=== PATIENT | female | born 2000 | race Caucasian/White ===

== ENCOUNTER 2023-03-04 05:32 | Emergency (ER) | payer BC, OTHER, SELFPAY ==
[2023-03-04 05:35] VITALS: BP 118/72; PULSE 72; RESP 18; TEMP 36.7; O2SAT 97; BMI 30.3
--- NOTE | 2023-03-04 05:38 | ED_ITS ---
HPI - General Adult <Eder Spain DO - Last Filed: 03/05/23 04:29> General Chief complaint: Shortness of Breath/Dyspnea Stated complaint: chest pain sob cough Time Seen by Provider: 03/04/23 05:35 History of Present Illness HPI narrative: 22F non-smoker presents with worsening cough, SOB, and pleuritic chest pain over the past week or so. She denies fever or chills nor runny nose or sore throat. She denies the production of sputum but feels like there is something for her to cough up but she is unable to thus far. She had some pain in her left calf a f ew days ago. She was seen and evaluated as an outside facility and had a swab for COVID, flu and strep all of which were negative and she was discharged on steroids and presents today under these conditions. She does state that about a week ago she flew here from [facility]. Her last menstrual period was a few weeks ago and relatively normal for her. She has had DVT in the past, when she had COVID a few years ago and also had an IUD which has since been removed. Related Data Previous Rx's Medication Instructions Recorded prednisone 20 mg tablet 40 mg PO DAILY #10 tabs 03/04/23 Allergies Allergy/AdvReac Type Severity Reaction Status Date / Time No Known Drug Allergies Allergy Verified 03/04/23 06:18 Exam <dEer Spain DO - Last Filed: 03/05/23 04:29> Narrative Exam Narrative: GENERAL: [22] year old patient appears stated age. Well-developed patient, in mild distress. HEAD: Atraumatic. Normocephalic. EYES: Pupils equal round and reactive. Extraocular motions intact. No scleral icterus. No injection or drainage. ENT: Nose without bleeding, purulent drainage. Throat without erythema, tonsillar hypertrophy or exudate. Airway patent. NECK: Trachea midline. Non tender CARDIOVASCULAR: Regular rate and rhythm without murmurs, gallops, or rubs. RESPIRATORY: Clear to auscultation. Breath sounds equal bilaterally. No wheezes, rales, or rhonchi. GASTROINTESTINAL: Abdomen soft, non-tender, nondistended. EXTREMITIES: No edema or joint tenderness. BACK: Nontender without deformity or crepitance. No flank tenderness. NEURO: AOx3. SKIN: No rash or erythema of visible areas Initial Vital Signs Initial Vital Signs: Vital Signs Temperature 98.1 F 03/04/23 05:35 Pulse Rate 72 03/04/23 05:35 Respiratory Rate 18 03/04/23 05:35 Blood Pressure 118/72 03/04/23 05:35 Pulse Oximetry 97 03/04/23 05:35 Oxygen Delivery Method Room Air 03/04/23 05:35 <Pily Joshi DO - Last Filed: 03/04/23 07:55> Initial Vital Signs Initial Vital Signs: Vital Signs Temperature 98.1 F 03/04/23 05:35 Pulse Rate 72 03/04/23 05:35 Respiratory Rate 18 03/04/23 05:35 Blood Pressure 118/72 03/04/23 05:35 Pulse Oximetry 97 03/04/23 05:35 Oxygen Delivery Method Room Air 03/04/23 05:35 Scores <DO Tatum Mota Last Filed: 03/05/23 04:29> PERC Score Age greater than or equal to 50 years: No Heart rate greater than or equal to 100 bpm: No Room Air O2 Sat less than 95%: No Unilateral leg swelling: No Recent trauma or surgery: No Hemoptysis: No Prior PE or DVT: Yes Hormone Use: No Total PERC Score: 1 Wells' Criteria for PE Clinical signs and symptoms of DVT: No PE is #1 Dx or equally likely: No Heart rate > 100: No Immobilization at least 3 days or surg in previous 4 weeks: No History of PE or DVT: Yes Hemoptysis: No Malignancy w/Treatment within 6 months or palliative: No Wells' PE Score total: 1.5 <DO Tatum Irizarry Last Filed: 03/04/23 07:55> PERC Score Total PERC Score: 1 Wells' Criteria for PE Wells' PE Score total: 1.5 Course <DO Tatum Mota Last Filed: 03/05/23 04:29> Orders Ordered: Discontinued Medications Methylprednisolone (Methylprednisolone 125 Mg/2 Ml Vial) 125 mg IV NOW ONE Stop: 03/04/23 07:49 Last Admin: 03/04/23 07:56 Dose: 125 mg Documented By: CTS Vital Signs Vital signs: Vital Signs - 8 hr 03/04/23 05:35 Temperature 98.1 F Pulse Rate 72 Respiratory Rate 18 Blood Pressure 118/72 Pulse Oximetry 97 Oxygen Delivery Method Room Air <Pily Joshi DO - Last Filed: 03/04/23 07:55> Orders Ordered: Discontinued Medications Methylprednisolone (Methylprednisolone 125 Mg/2 Ml Vial) 125 mg IV NOW ONE Stop: 03/04/23 07:49 Last Admin: 03/04/23 07:56 Dose: 125 mg Documented By: CTS Vital Signs Vital signs: Vital Signs - 8 hr 03/04/23 05:35 Temperature 98.1 F Pulse Rate 72 Respiratory Rate 18 Blood Pressure 118/72 Pulse Oximetry 97 Oxygen Delivery Method Room Air Medical Decision Making <Eder Spain DO - Last Filed: 03/05/23 04:29> Lab Data 03/04/23 06:00 03/04/23 06:00 Labs: Lab Results 03/04/23 03/04/23 03/04/23 Range/Units 06:00 06:00 06:00 WBC 10.6 (4.5-11.0) X10^3/uL RBC 4.63 (4.0-5.2) X10^6/uL Hgb 14.1 (12.0-16.0) g/dL Hct 40.7 (36-46) % MCV 88.1 (80-100) fL MCH 30.5 (26-34) PG MCHC 34.6 (30-36) % RDW 13.2 (11.6-14.8) % Plt Count 176 (150-400) X10^3/uL Neut % (Auto) 69.1 (50-75) % Lymph % (Auto) 18.7 L (25-40) % Smyth % (Auto) 11.2 (3-14) % Eos % (Auto) 0.5 L (2-4) % Baso % (Auto) 0.5 (0-2) % Neut # (Auto) 7300 H (6316-5650) /uL Lymph # (Auto) 2000 (3952-4827) /uL Smyth # (Auto) 1200 H (0-900) /uL Eos # (Auto) 100 (0-450) /uL Baso # (Auto) 100 (0-100) /uL D-Dimer 528 H (<500) ng/ml Sodium 136 L (137-145) mmol/L Potassium 4.2 (3.4-5.1) mmol/L Chloride 105 (98-107) mmol/L Carbon Dioxide 22 (22-32) mmol/L BUN 14 (7-17) mg/dL Creatinine 0.64 (0.52-1.04) mg/dL Estimated GFR > 60 (>60) mL/min BUN/Creatinine Ratio 21.9 (6-22) Glucose 85 (70-100) mg/dL Calcium 8.8 (8.4-10.2) mg/dL Total Creatine Kinase (30-135) U/L Troponin I (0.01-0.034) ng/mL 03/04/23 Range/Units 06:00 WBC (4.5-11.0) X10^3/uL RBC (4.0-5.2) X10^6/uL Hgb (12.0-16.0) g/dL Hct (36-46) % MCV (80-100) fL MCH (26-34) PG MCHC (30-36) % RDW (11.6-14.8) % Plt Count (150-400) X10^3/uL Neut % (Auto) (50-75) % Lymph % (Auto) (25-40) % Smyth % (Auto) (3-14) % Eos % (Auto) (2-4) % Baso % (Auto) (0-2) % Neut # (Auto) (6045-2819) /uL Lymph # (Auto) (6911-0038) /uL Smyth # (Auto) (0-900) /uL Eos # (Auto) (0-450) /uL Baso # (Auto) (0-100) /uL D-Dimer (<500) ng/ml Sodium (137-145) mmol/L Potassium (3.4-5.1) mmol/L Chloride (98-107) mmol/L Carbon Dioxide (22-32) mmol/L BUN (7-17) mg/dL Creatinine (0.52-1.04) mg/dL Estimated GFR (>60) mL/min BUN/Creatinine Ratio (6-22) Glucose (70-100) mg/dL Calcium (8.4-10.2) mg/dL Total Creatine Kinase 57 (30-135) U/L Troponin I < 0.012 (0.01-0.034) ng/mL Point of Care Testing Test Results Negative Point of care testing: Point of Care Testing Test Results Negative MDM Narrative Medical decision making narrative: CC: 22-year-old female worsening cough, shortness of breath and pleuritic chest pain Complicating co-morbidities: Prior clot, recent travel Data collected from: Patient Medical records reviewed: Prior notes reviewed in our EMR Differential considered, but not limited to: Pneumonia versus atypical pneumonia versus viral upper respiratory infection versus pulmonary embolism versus other Exam documented above, pertinent findings include: Regular, lungs clear, nonlabored breathing Lab Test results independently reviewed as above. Pertinent findings: D-dimer above cutoff, no leukocytosis or left shift Imaging studies independently reviewed: CTA demonstrates Scores Used: Wells, PERC Dr. Joshi-patient signed out to me by Dr. Spain seen evaluated patient myself. She describes pain every time she bruits some coughing no fevers it has been ongoing for about 1 week. She was apparently in an ED earlier she at 1 dose of steroids which she said helped but was not discharged home on them. She has a history of DVT in the past. CT angio is negative. I think reasonable to start her on coarse prednisone. sHe is given 1 dose of Solu-Medrol in the ED. <Pily Joshi, DO - Last Filed: 03/04/23 07:55> Lab Data Labs: Lab Results 03/04/23 03/04/23 03/04/23 Range/Units 06:00 06:00 06:00 WBC 10.6 (4.5-11.0) X10^3/uL RBC 4.63 (4.0-5.2) X10^6/uL Hgb 14.1 (12.0-16.0) g/dL Hct 40.7 (36-46) % MCV 88.1 (80-100) fL MCH 30.5 (26-34) PG MCHC 34.6 (30-36) % RDW 13.2 (11.6-14.8) % Plt Count 176 (150-400) X10^3/uL Neut % (Auto) 69.1 (50-75) % Lymph % (Auto) 18.7 L (25-40) % Smyth % (Auto) 11.2 (3-14) % Eos % (Auto) 0.5 L (2-4) % Baso % (Auto) 0.5 (0-2) % Neut # (Auto) 7300 H (4481-5276) /uL Lymph # (Auto) 2000 (5078-9222) /uL Smyth # (Auto) 1200 H (0-900) /uL Eos # (Auto) 100 (0-450) /uL Baso # (Auto) 100 (0-100) /uL D-Dimer 528 H (<500) ng/ml Sodium 136 L (137-145) mmol/L Potassium 4.2 (3.4-5.1) mmol/L Chloride 105 (98-107) mmol/L Carbon Dioxide 22 (22-32) mmol/L BUN 14 (7-17) mg/dL Creatinine 0.64 (0.52-1.04) mg/dL Estimated GFR > 60 (>60) mL/min BUN/Creatinine Ratio 21.9 (6-22) Glucose 85 (70-100) mg/dL Calcium 8.8 (8.4-10.2) mg/dL Total Creatine Kinase (30-135) U/L Troponin I (0.01-0.034) ng/mL 03/04/23 Range/Units 06:00 WBC (4.5-11.0) X10^3/uL RBC (4.0-5.2) X10^6/uL Hgb (12.0-16.0) g/dL Hct (36-46) % MCV (80-100) fL MCH (26-34) PG MCHC (30-36) % RDW (11.6-14.8) % Plt Count (150-400) X10^3/uL Neut % (Auto) (50-75) % Lymph % (Auto) (25-40) % Smyth % (Auto) (3-14) % Eos % (Auto) (2-4) % Baso % (Auto) (0-2) % Neut # (Auto) (7107-2275) /uL Lymph # (Auto) (8817-5181) /uL Smyth # (Auto) (0-900) /uL Eos # (Auto) (0-450) /uL Baso # (Auto) (0-100) /uL D-Dimer (<500) ng/ml Sodium (137-145) mmol/L Potassium (3.4-5.1) mmol/L Chloride (98-107) mmol/L Carbon Dioxide (22-32) mmol/L BUN (7-17) mg/dL Creatinine (0.52-1.04) mg/dL Estimated GFR (>60) mL/min BUN/Creatinine Ratio (6-22) Glucose (70-100) mg/dL Calcium (8.4-10.2) mg/dL Total Creatine Kinase 57 (30-135) U/L Troponin I < 0.012 (0.01-0.034) ng/mL Point of Care Testing Test Results Negative Point of care testing: Point of Care Testing Test Results Negative Imaging Data CT scan - chest: Radiologist's Impression: Preliminary report normal CT angio of the MDM Narrative Medical decision making narrative: CC: 22-year-old female worsening cough, shortness of breath and pleuritic chest pain Complicating co-morbidities: Prior clot, recent travel Data collected from: Patient Medical records reviewed: Prior notes reviewed in our EMR Differential considered, but not limited to: Pneumonia versus atypical pneumonia versus viral upper respiratory infection versus pulmonary embolism versus other Exam documented above, pertinent findings include: Regular, lungs clear, nonlabored breathing Lab Test results independently reviewed as above. Pertinent findings: D-dimer above cutoff, no leukocytosis or left shift Imaging studies independently reviewed: CTA demonstrates Scores Used: Wells, PERC Consultations: Treatments: Re-evaluations: Discussion: Disposition: see below, along with detailed discharge instructions that have been reviewed with patient as well as indications for ED re-evaluation and additional outpatient follow up Dr. Joshi-patient signed out to me by Dr. Spain seen evaluated patient my self. She describes pain every time she bruits some coughing no fevers it has been ongoing for about 1 week. She was apparently in an ED earlier she at 1 dose of steroids which she said helped but was not discharged home on them. She has a history of DVT in the past. CT angio is negative. I think reasonable to start her on coarse prednisone. sHe is given 1 dose of Solu-Medrol in the ED. Discharge Plan Departure Patient Disposition: Home Clinical Impression: Pleurisy Instructions: DI for Pleurisy Activity Restrictions/Additional Instructions: *You have been diagnosed with pleurisy *What to do: At this time you have a viral illness with inflammation around your lungs. Hopefully this starts to get better for you. No need for antibiotics this time. *Continue to take medications as directed Prednisone 40 mg once a day for 5 days *Follow up with your primary care provider in 2-3 days or call [phone] *Return to ER if you should have increased chest pain shortness of breath fever or any new, worsening or concerning symptoms Prescriptions: New prednisone 20 mg tablet 40 mg PO DAILY Qty: 10 0RF Stand Alone Forms: Patient Portal/API
[2023-03-04 05:52] VITALS: PULSE 93; O2SAT 98
[2023-03-04 06:00] VITALS: PULSE 99; O2SAT 98
[2023-03-04 06:09] LABS: Add Manual Diff / Slide Review NO; Basophils Absolute Auto 100 /uL (0-100); Basophils Percent Auto 0.5 % (0-2); Eosinophils Absolute Auto 100 /uL (0-450); Eosinophils Percent Auto 0.5 % (2-4); Hematocrit 40.7 % (36-46); Hemoglobin 14.1 g/dL (12.0-16.0); Lymphocytes Absolute Auto 2000 /uL (1100-4500); Lymphocytes Percent Auto 18.7 % (25-40); Mean Corpuscular HGB Conc 34.6 % (30-36); Mean Corpuscular Hemoglobin 30.5 PG (26-34); Mean Corpuscular Volume 88.1 fL (80-100); Monocytes Absolute Auto 1200 /uL (0-900); Monocytes Percent Auto 11.2 % (3-14); Neutrophils Absolute Auto 7300 /uL (1500-7000); Neutrophils Percent Auto 69.1 % (50-75); Platelet Count 176 X10^3/uL (150-400); Red Blood Cell Count 4.63 X10^6/uL (4.0-5.2); Red Cell Distribution Width 13.2 % (11.6-14.8); White Blood Cell Count 10.6 X10^3/uL (4.5-11.0)
[2023-03-04 06:14] LABS: D Dimer 528 ng/ml (<500)
[2023-03-04 06:17] LABS: BUN Creatinine Ratio 21.9 (6-22); Blood Urea Nitrogen 14 mg/dL (7-17); Calcium 8.8 mg/dL (8.4-10.2); Carbon Dioxide 22 mmol/L (22-32); Chloride 105 mmol/L (98-107); Creatine Kinase 57 U/L (30-135); Estimated Glomerular Filt Rate > 60 mL/min (>60); Glucose 85 mg/dL (70-100); HEMOLYSIS 46 (0-50); Potassium 4.2 mmol/L (3.4-5.1); Sodium 136 mmol/L (137-145)
--- NOTE | 2023-03-04 06:22 | DI.CT.S_ITS ---
PROCEDURE: CT ANGIO CHEST PE PROTOCOL INDICATIONS: chest pain, cough, critical dimer, prior DVT, travel TECHNIQUE: After the administration of intravenous contrast, 2 mm thick sections acquired from the pulmonary apices to the posterior costophrenic angles. 3-dimensional maximum intensity projection (MIP) coronal and sagittal reformats were then acquired through the thorax. For radiation dose reduction, the following was used: automated exposure control, adjustment of mA and/or kV according to patient size. COMPARISON: None. FINDINGS: Image quality: Excellent. Pulmonary arteries: Pulmonary arteries are normal in size, and demonstrate no intraluminal filling defects to suggest central pulmonary embolism. Lungs and pleura: Lungs are clear. No pleural effusions or pneumothorax. Central and peripheral airways are patent. Mediastinum: Heart size is normal, without pericardial effusion. No mediastinal or hilar adenopathy. Thoracic aorta is normal in caliber and enhancement. Esophagus is normal in caliber, without hiatal hernia. Bones and chest wall: No suspicious bony lesions. Ribs and thoracic spine appear intact throughout. Thyroid gland is only partially visualized and unremarkable. No axillary or supraclavicular adenopathy. Abdomen: Visualized upper abdominal solid organs appear normal in the early arterial phase of enhancement. IMPRESSION: No pulmonary embolus. No concerning consolidation. Dictated by: Mitchell Jarrett M.D. on 03/04/2023 at 8:07 Approved by: Mitchell Jarrett M.D. on 03/04/2023 at 8:11
[2023-03-04 06:29] LABS: Troponin I < 0.012 ng/mL (0.01-0.034)
[2023-03-04 06:30] VITALS: PULSE 69; O2SAT 97
[2023-03-04 07:54] VITALS: O2SAT 98
[2023-03-04 07:55] VITALS: BP 95/58; PULSE 75; O2SAT 98
[2023-03-04] MEDS: methylPREDNISolone 125 MG/2 ML VIAL IV (07:56)
== END 2023-03-04 08:00 | disposition home or self-care (01) ==
PROVIDERS: Emergency Medicine; Emergency Provider Emergency Medicine
DX: R09.1 Pleurisy (principal)
CPT/HCPCS: 36415; 71275; 80048; 81025; 82550; 84484; 85025; 85379; 96374; 99284; J2930; Q9967

== ENCOUNTER → 2023-09-03 18:28 | Outpatient (CLI) | payer BC, OTHER, SELFPAY ==
--- NOTE | 2023-09-03 | DI.MRI.S_ITS ---
PROCEDURE: MR CERVICAL SPINE WO CON INDICATIONS: Spinal stenosis, cervical region TECHNIQUE: Noncontrast sagittal T1 spin echo and T2 fast spin echo, sagittal STIR, foraminal oblique sagittal T2 fast spin echo, and axial gradient echo or T2 fast spin echo through the cervical spine. COMPARISON: [facility], CR, XR CERVICAL SPINE 6+ VIEWS, 08/20/2023, 8:59. FINDINGS: Image quality: Excellent. Alignment and Curvature: There is straightening of the normal cervical lordosis. Mac row AP Bone Marrow: Marrow demonstrates normal overall signal. Spinal Cord: Visualized spinal cord has normal size and signal. No cerebellar tonsillar herniation. Paraspinous Soft Tissues: No paravertebral masses. Prevertebral soft tissues are normal in thickness. C2-C3: Normal appearance. C3-C4: Normal appearance. C4-C5: Normal appearance. C5-C6: Normal appearance. C6-C7: Normal appearance. C7-T1: Normal appearance. IMPRESSION: Straightening of the normal cervical lordosis is seen, which is commonly observed in patients with muscular spasm. No significant focal disc pathology can be seen. No significant neural foraminal or central canal narrowing can be seen. Dictated by: Marquis Mittal M.D. on 09/04/2023 at 10:46 Approved by: Marquis Mittal M.D. on 09/04/2023 at 10:48
== END ==
LOC: MRI 18:30
PROVIDERS: Referring Provider Physical Medicine & Rehabilitation Pain Medicine; Visit Provider Physical Medicine & Rehabilitation Pain Medicine
DX: M48.02 Spinal stenosis, cervical region (principal)
CPT/HCPCS: 72141

== ENCOUNTER 2024-10-22 18:04 | Emergency (ER) | payer BC, OTHER, SELFPAY ==
[2024-10-22] VITALS (8 sets, daily range): BP systolic 98–115; BP diastolic 58–78; PULSE 63–76; RESP 16–18; TEMP 36.6; O2SAT 99–100; BMI 30.7
[2024-10-22 19:32] LABS: Add Manual Diff / Slide Review NO; Basophils Absolute Auto 100 /uL (0-100); Basophils Percent Auto 0.6 % (0-2); Eosinophils Absolute Auto 0 /uL (0-450); Eosinophils Percent Auto 0.5 % (2-4); Hematocrit 43.2 % (36-46); Hemoglobin 14.8 g/dL (12.0-16.0); Lymphocytes Absolute Auto 3000 /uL (1100-4500); Lymphocytes Percent Auto 35.8 % (25-40); Mean Corpuscular HGB Conc 34.3 % (30-36); Mean Corpuscular Hemoglobin 30.2 PG (26-34); Mean Corpuscular Volume 88.2 fL (80-100); Monocytes Absolute Auto 600 /uL (0-900); Monocytes Percent Auto 7.6 % (3-14); Neutrophils Absolute Auto 4600 /uL (1500-7000); Neutrophils Percent Auto 55.5 % (50-75); Platelet Count 202 X10^3/uL (150-400); Red Cell Distribution Width 13.2 % (11.6-14.8); White Blood Cell Count 8.3 X10^3/uL (4.5-11.0)
[2024-10-22 19:47] LABS: Alanine Aminotransferase 22 IU/L (<35); Albumin 4.9 g/dL (3.5-5.0); Albumin Globulin Ratio 1.8 (1.0-2.8); Alkaline Phosphatase 50 U/L (38-126); Aspartate Aminotransferase 24 IU/L (14-36); BUN Creatinine Ratio 14.3 (6-22); Bilirubin Total 0.5 mg/dL (0.2-1.3); Blood Urea Nitrogen 10 mg/dL (7-17); Calcium 9.6 mg/dL (8.4-10.2); Carbon Dioxide 23 mmol/L (22-32); Chloride 103 mmol/L (98-107); Estimated Glomerular Filt Rate > 60 mL/min (>60); Globulin 2.7 g/dL (1.7-4.1); Glucose 85 mg/dL (70-100); HEMOLYSIS < 15 (0-50); Lipase 127 U/L (23-300); Potassium 3.7 mmol/L (3.4-5.1); Sodium 137 mmol/L (137-145); Total Protein 7.6 g/dL (6.3-8.2)
--- NOTE | 2024-10-22 21:06 | ED_ITS ---
HPI - Abdominal Pain General Chief Complaint: Abdominal Pain Stated Complaint: Lower rt abdomen pain Time Seen by Provider: 10/22/24 21:06 Source: patient Mode of arrival: Ambulatory History of Present Illness HPI narrative: 24-year-old female without any significant past medical history comes into the ED from home for evaluation of abdominal pain, states it is to the right lower quadrant, states she has been increasing throughout the day has some nausea with this but no vomiting, states he took 2 Tylenol at 11 without much relief was sent in by would be walk-in given abdominal pain to rule out appendicitis. Patient not complaining of any other symptoms at this time. Related Data Previous Rx's Medication Instructions Recorded prednisone 20 mg tablet 40 mg (2 x 20 mg) PO DAILY #10 tabs 03/04/23 Allergies Allergy/AdvReac Type Severity Reaction Status Date / Time No Known Drug Allergies Allergy Verified 03/04/23 06:18 Review of Systems Review of Systems Narrative: General: Denies fever, chills, weight loss HEENT: Denies headache, eye drainage, eye irritation, head trauma, sore throat, voice change Cardiovascular: Denies any chest pain, palpitations, tachycardia Respiratory: Denies any shortness of breath, cough, wheeze, stridor GI/: Positive abdominal pain, nausea, denies vomiting, diarrhea, bright red blood per rectum, melanotic stools, urinary frequency, urinary retention, dysuria, hematuria MSK: Denies any joint pain, muscle pains, swelling Skin: Denies any rashes, lesions, discoloration Neuro: Denies any headache, lightheadedness, dizziness, fainting, weakness Psych: Denies SI/HI Patient History Social History Smoking Status: Never smoker Smoking Status: Never smoker Exam Narrative Exam Narrative: General: Cooperative, well-developed, not in acute distress HEENT: Normocephalic, atraumatic, PERRLA, normal sclera, eyelids normal Neck: Active full range of motion, atraumatic Chest: Normal to inspection, negative crepitus, no overlying erythema ecchymosis Respiratory: Normal respiratory effort, not in acute respiratory distress, clear to auscultation bilaterally negative cough, wheeze, tachypnea, rhonchi, rales Cardiology: Regular rate rhythm negative gallop, murmur, rubs GI/: Mild tenderness to palpation right lower quadrant, soft, non rigid, normal to inspection, exam deferred MSK: Full active range of motion in all 4 extremities, atraumatic, no tenderness to palpation of any bony prominences Skin: No rashes or lesions noted Neuro: Alert awake oriented x3, moves all 4 extremities spontaneously, cranial nerves intact, able to answer all questions appropriately follows commands appropriately Psych: Cooperative, negative suicidal or homicidal ideations Initial Vital Signs Initial Vital Signs: Vital Signs Temperature 97.8 F 10/22/24 18:11 Pulse Rate 72 10/22/24 18:11 Respiratory Rate 16 10/22/24 18:11 Blood Pressure 113/58 L 10/22/24 18:11 Pulse Oximetry 99 10/22/24 18:11 Oxygen Delivery Method Room Air 10/22/24 18:11 Course Orders Ordered: ED Orders 10/22/24 19:24 Complete Blood Count AUTO DIFF Stat Comprehensive Metabolic Panel Stat Lipase Stat 10/22/24 21:07 CT abdomen pelvis w con Stat Ondansetron HCl (Ondansetron 4 Mg/2 Ml Inj) 4 mg IV NOW PRN PRN Reason: Nausea And Vomiting Ondansetron HCl (Ondansetron 4 Mg Odt) 4 mg PO NOW PRN PRN Reason: Nausea And Vomiting Discontinued Medications Ketorolac Tromethamine (Ketorolac 30 Mg/Ml Vial) 30 mg IV NOW ONE Stop: 10/22/24 21:08 Last Admin: 10/22/24 21:19 Dose: 30 mg Documented By: ROSI Ondansetron HCl (Ondansetron 4 Mg/2 Ml Inj) 4 mg IV NOW ONE Stop: 10/22/24 21:13 Last Admin: 10/22/24 21:20 Dose: 4 mg Documented By: ROSI Vital Signs Vital signs: Vital Signs - 8 hr 10/22/24 18:11 10/22/24 21:26 10/22/24 21:27 Temperature 97.8 F Pulse Rate 72 68 Respiratory Rate 16 Blood Pressure 113/58 L 115/78 Pulse Oximetry 99 100 Oxygen Delivery Method Room Air 10/22/24 21:27 10/22/24 21:30 10/22/24 21:30 Temperature Pulse Rate 63 76 Respiratory Rate Blood Pressure 105/65 Pulse Oximetry 100 100 Oxygen Delivery Method 10/22/24 22:00 04/02/25 22:00 10/22/24 22:30 Temperature Pulse Rate 73 71 Respiratory Rate Blood Pressure 105/62 Pulse Oximetry 100 100 Oxygen Delivery Method 10/22/24 22:30 10/22/24 23:00 10/22/24 23:00 Temperature Pulse Rate 66 Respiratory Rate Blood Pressure 98/61 107/64 Pulse Oximetry 100 Oxygen Delivery Method MDM - Abdominal Pain Differential Diagnosis Differential diagnosis: Likely abdominal pain, acute appendicitis, constipation, diverticulitis, gastroenteritis, pancreatitis and other (Urinary tract infection, electrolyte abnormality) Lab Data 10/22/24 19:24 10/22/24 19:24 Labs: Lab Results 10/22/24 Range/Units 19:24 WBC 8.3 (4.5-11.0) X10^3/uL RBC 4.90 (4.0-5.2) X10^6/uL Hgb 14.8 (12.0-16.0) g/dL Hct 43.2 (36-46) % MCV 88.2 (80-100) fL MCH 30.2 (26-34) PG MCHC 34.3 (30-36) % RDW 13.2 (11.6-14.8) % Plt Count 202 (150-400) X10^3/uL Neut % (Auto) 55.5 (50-75) % Lymph % (Auto) 35.8 (25-40) % [place] % (Auto) 7.6 (3-14) % Eos % (Auto) 0.5 L (2-4) % Baso % (Auto) 0.6 (0-2) % Neut # (Auto) 4600 (3145-0681) /uL Lymph # (Auto) 3000 (7978-8563) /uL [place] # (Auto) 600 (0-900) /uL Eos # (Auto) 0 (0-450) /uL Baso # (Auto) 100 (0-100) /uL Sodium 137 (137-145) mmol/L Potassium 3.7 (3.4-5.1) mmol/L Chloride 103 (98-107) mmol/L Carbon Dioxide 23 (22-32) mmol/L BUN 10 (7-17) mg/dL Creatinine 0.70 (0.52-1.04) mg/dL Estimated GFR > 60 (>60) mL/min BUN/Creatinine Ratio 14.3 (6-22) Glucose 85 (70-100) mg/dL Calcium 9.6 (8.4-10.2) mg/dL Total Bilirubin 0.5 (0.2-1.3) mg/dL AST 24 (14-36) IU/L ALT 22 (<35) IU/L Alkaline Phosphatase 50 (38-126) U/L Total Protein 7.6 (6.3-8.2) g/dL Albumin 4.9 (3.5-5.0) g/dL Globulin 2.7 (1.7-4.1) g/dL Albumin/Globulin Ratio 1.8 (1.0-2.8) Lipase 127 (23-300) U/L Point of care testing: Point of Care Testing Test Results Negative Urine Dip Bedside Urine Glucose Negative Bedside Urine Bilirubin - Negative Bedside Urine Ketone - Negative Urine Specific [place] 1.020 Bedside Urine Occult Blood - Negative Bedside Urine pH 6 Bedside Urine Protein - Negative Bedside Urine Urobilinogen - Negative Bedside Urine Nitrite - Negative Bedside Urine Leukocytes - Negative Esterase Imaging Data CT scan - abdomen/pelvis: Radiologist's Impression: [place] [address] CT Scan Report Signed Patient: Corina Castillo MR#: [id number] : 2000 Acct:[id number] Age/Sex: 24 / F Date of Service: 10/22/24 Loc: ED Accession Number: [id number] Procedure: CT abdomen pelvis w con Ordering Provider: Jas Mcwilliams D.O. PROCEDURE: CT ABDOMEN PELVIS W CON INDICATIONS: RLQ abd pain TECHNIQUE: After the administration of intravenous contrast, axial sections acquired from the lung bases to the pubic symphysis. Coronal and sagittal reformats were performed. For radiation dose reduction, the following was used: automated exposure control, adjustment of mA and/or kV according to patient size. COMPARISON: None. FINDINGS: Image quality: Diagnostic. Lower Chest: No significant findings. ABDOMEN: Liver: No solid mass. Gallbladder: No radiopaque gallstones or wall thickening. Biliary ducts: No biliary dilation. Pancreas: No ductal dilation. Spleen: Size is within normal limits. Adrenal Glands: No adrenal nodules. Kidneys and Ureters: No hydronephrosis. No solid mass. No complex renal cystic lesion which requires follow up. Stomach and Bowel: Stomach and small bowel loops are fairly decompressed. Normal appendix. Slightly increased quantity of solid stool. No CT evidence of colitis. Peritoneum: No abnormal intraperitoneal fluid. No free air. Ventral Wall: No significant ventral hernia. Abdominal Nodes: No retroperitoneal or mesenteric adenopathy by size criteria. Vessels: Aorta and inferior vena cava are normal in size. PELVIS: Pelvic Organs: The right ovary is slightly enlarged and contains a peripherally vascular cyst and mild free fluid layering dependently. Anteverted retroflexed uterus has a normal CT appearance. Left ovary appears normal. Bladder: Decompressed. Pelvic Nodes: No enlarged lymph nodes. Miscellaneous: No inguinal hernias are seen. Bones: No aggressive osseous abnormality. IMPRESSION: Peripherally vascular right ovarian cyst suggesting a corpus luteum with adjacent fluid indicating recent rupture. Normal appendix. MDM Narrative Medical decision making narrative: 24-year-old female without significant past medical history presents for right lower quadrant abdominal pain with nausea no vomiting started yesterday, nothing making it better or worse. Urinalysis not consistent with acute urinary tract infection patient without any leukocytosis Chem panel unremarkable, CT scan showing ovarian cyst rupture, on re-evaluation at time of discharge patient's symptoms significantly improved no longer tender to palpation of the abdomen, she states that she does have an OBGYN for follow up with them in an outpatient setting, she was given strict return precautions she verbalized understanding of this and agrees to being discharged home with outpatient follow up Discharge Plan Departure Patient Disposition: Home Clinical Impression: Ovarian cyst rupture Instructions: DI for Ovarian Cyst Activity Restrictions/Additional Instructions: Please follow up with your OBGYN in outpatient setting Please read the discharge instructions sheet carefully and bring all papers to all doctor follow-up visits, as it may contain information that your doctor may want to see. Disease processes change and evolve, if your symptoms worsen or if you develop any new symptoms that are concerning to you please return for evaluation. Your evaluation today does not show any evidence of any life- threatening/serious illnesses requiring admission to the hospital or surgery. Please follow-up with your doctor for re-evaluation in approximately 1 day. Seek immediate medical attention for any worrisome symptoms. *If you do not have a primary care provider please contact the [facility] Resource line at [phone]. They will ask some questions about your medical history and help get you set up with a doctor in the community. Prescriptions: No Action prednisone 20 mg tablet 40 mg PO DAILY Qty: 10 0RF Stand Alone Forms: Patient Portal/API/Survey
[2024-10-22] MEDS: KETOROLAC 30 MG/ML VIAL IV (21:19)
[2024-10-22] MEDS: ONDANSETRON 4 MG/2 ML INJ IV (21:20)
== END 2024-10-22 23:45 | disposition home or self-care (01) ==
PROVIDERS: Emergency Provider Student in an Organized Health Care Education/Training Program
DX: N83.201 Unspecified ovarian cyst, right side (principal)
CPT/HCPCS: 36415; 74177; 80053; 81003; 81025; 83690; 85025; 96374; 96375; 99284; J1885; J2405; Q9967